=== PATIENT | male | born 1990 | race Caucasian/White ===

== ENCOUNTER 2023-05-09 16:23 | Emergency (ER) | payer BC ==
[~2023-05-09] VITALS: Ht 167.6 cm; Wt 99.8 kg
[2023-05-09 16:39] VITALS: BP 156/107
== END 2023-05-09 20:36 | disposition home or self-care (01) ==
LOC: ER 16:23
DX: M79.89 Other specified soft tissue disorders (principal); M10.9 Gout, unspecified
CPT/HCPCS: 73600; 96372; 99283-25; J1885